=== PATIENT | female | born 1975 | race Caucasian/White ===

== ENCOUNTER 2023-08-27 18:13 | Emergency (ER) | payer OTHER ==
--- NOTE | 2023-08-27 18:16 | ERPHSYRPT ---
- History of Present Illness Time Seen by Provider: 08/27/23 18:16 Source: patient Exam Limitations: no limitations Physician History: This is a morbidly obese 47-year-old white female patient who presents with 3- day history of migraine headaches that is generalized and throbbing in location and type of pain. She rates her pain a 7 out of 10. Patient has her migraine headaches for the last 3 days despite using her maintenance migraine headache medication as well as preventative migraine medication. Patient denies any head trauma. Patient is refusing CT scan of the head since she had a relatively recent negative MRI of the brain at the end of June 2023. Patient has an appointment to see a neurologist on 08/29/2023. Patient states that at her most recent migraine headache episode, they did not provide her with any narcotic medication but did provide her with a nonnarcotic migraine cocktail. This was not effective for her. Patient was hoping to also have IV fluids. The patient's spouse provided additional, independent history as the patient did not remember all the details of her past medical history regarding migraine headache episodes and treatments. Timing/Duration: day(s) (3) Quality: aching, throbbing Head Pain Location: global Severity of Pain-Max: moderate Severity of Pain-Current: moderate Recent Head Trauma: occasional headaches Modifying Factors: Improves With: exposure to light, noise Associated Symptoms: sensitive to light Previous symptoms: same symptoms as today, no recent treatment Allergies/Adverse Reactions: morphine Allergy (Verified 08/27/23 18:25) Sulfa (Sulfonamide Antibiotics) Allergy (Verified 08/27/23 18:25) Travel Risk - International Travel Have you traveled outside of the country in past 3 weeks: No - Coronavirus Screening Are you exhibiting any of the following symptoms?: No Close contact with a COVID-19 positive Pt in past 14-21 Days: No - Review of Systems Constitutional: No Symptoms Eyes: No Symptoms Ears, Nose, & Throat: No Symptoms Respiratory: No Symptoms Cardiac: No Symptoms Abdominal/Gastrointestinal: No Symptoms Genitourinary Symptoms: No Symptoms Musculoskeletal: No Symptoms Skin: No Symptoms Neurological: Headache Psychological: No Symptoms Endocrine: No Symptoms Hematologic/Lymphatic: No Symptoms Immunological/Allergic: No Symptoms All Other Systems: Reviewed and Negative - Past Medical History Pertinent Past Medical History: Yes Neurological History: Migraines Cardiac History: No Pertinent History Respiratory History: No Pertinent History Endocrine Medical History: Hypothyroidism Musculoskeletal History: No Pertinent History - Nursing Vital Signs Nursing Vital Signs: Initial Vital Signs Temperature 97.3 F 08/27/23 18:26 Pulse Rate 60 08/27/23 18:26 Respiratory Rate 24 08/27/23 18:26 Blood Pressure 125/81 08/27/23 18:26 O2 Sat by Pulse Oximetry 99 08/27/23 18:26 Pain Scale Pain Intensity 0 - Physical Exam General Appearance: no apparent distress, alert, anxiety, obese Eye Exam: PERRL/EOMI, eyes nml inspection Ears, Nose, Throat Exam: normal ENT inspection, moist mucous membranes Neck Exam: normal inspection, non-tender, supple, full range of motion Respiratory Exam: normal breath sounds, lungs clear, airway intact, No chest tenderness, No respiratory distress Cardiovascular Exam: regular rate/rhythm, normal heart sounds, normal peripheral pulses Gastrointestinal/Abdominal Exam: No tenderness Back Exam: normal inspection, normal range of motion, No CVA tenderness, No vertebral tenderness Extremity Exam: normal inspection, normal range of motion, pelvis stable Mental Status Exam: alert, 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, 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 Exam: normal hearing, normal speech, PERRL, tongue midline Coordination/Gait Exam: normal finger to nose, normal gait, normal cerebellar function Motor/Sensory Exam: no motor deficit, no sensory deficit, no pronator drift Skin Exam: normal color, warm, dry Lymphatic Exam: No adenopathy SpO2 Interpretation: normal O2 Delivery: Room Air - Course Nursing assessment & vital signs reviewed: Yes Ordered Tests: Active Orders 24 hr Category Date Time Status IV Insertion STAT Care 08/27/23 18:36 Active Pulse Oximetry (ED) STAT Care 08/27/23 18:36 Active Medication Summary Generic Name Dose Route Start Last Admin Trade Name Freq PRN Reason Stop Dose Admin Sodium Chloride 500 mls @ 500 mls/hr 08/27/23 18:37 08/27/23 18:45 Sodium Chloride 0.9% 500 Ml IV 08/27/23 19:36 500 mls/hr .Q1H ONE Administration Discontinued Medications Generic Name Dose Route Start Last Admin Trade Name Freq PRN Reason Stop Dose Admin Diphenhydramine HCl 50 mg 08/27/23 18:36 08/27/23 18:47 Diphenhydramine Hcl 50 Mg/Ml Vial IV 08/27/23 18:37 50 mg STAT ONE Administration Diphenhydramine HCl Confirm 08/27/23 18:42 Diphenhydramine Hcl 50 Mg/Ml Vial Administered 08/27/23 18:43 Dose 50 mg .ROUTE .STK-MED ONE Hydromorphone HCl 1 mg 08/27/23 18:36 08/27/23 18:48 Hydromorphone 1 Mg/1ml Inj IV 08/27/23 18:37 1 mg STAT ONE Administration Hydromorphone HCl Confirm 08/27/23 18:42 Hydromorphone 1 Mg/1ml Inj Administered 08/27/23 18:43 Dose 1 mg .ROUTE .STK-MED ONE Sodium Chloride Confirm 08/27/23 18:42 Sodium Chloride 0.9% 500 Ml Administered 08/27/23 18:43 Dose 500 mls @ ud IV .STK-MED ONE Ketorolac Tromethamine 30 mg 08/27/23 18:36 08/27/23 18:47 Ketorolac Tromethamine 30 Mg/Ml Inj IV 08/27/23 18:37 30 mg STAT ONE Administration Ketorolac Tromethamine Confirm 08/27/23 18:42 Ketorolac Tromethamine 30 Mg/Ml Inj Administered 08/27/23 18:43 Dose 30 mg .ROUTE .STK-MED ONE Prochlorperazine Edisylate 5 mg 08/27/23 18:36 08/27/23 18:46 Prochlorperazine Edisylate 10 Mg/2 Ml Vial IV 08/27/23 18:37 5 mg STAT ONE Administration Prochlorperazine Edisylate Confirm 08/27/23 18:42 Prochlorperazine Edisylate 10 Mg/2 Ml Vial Administered 08/27/23 18:43 Dose 10 mg .ROUTE .STK-MED ONE - Progress Progress: improved, re-examined Air Movement: good Progress Note: 08/27/23 18:57 This patient's medical issue is 1 of low complexity. The level of complexity in the workup performed is based on review of the patient's past medical history, review the patient's medication list, review of patient drug allergy list, history of present illness and physical findings on examination. The workup in this patient includes placement of intravenous line, infusion normal saline solution, providing the patient with intravenous Compazine, intravenous Toradol, intravenous Dilaudid, and intravenous Benadryl. 08/27/23 19:25 Symptoms improved Blood Culture(s) Obtained: No Antibiotics given: No Counseled pt/family regarding: diagnosis, need for follow-up Medical Desision Making - Independent Historian Additional History obtained from: Spouse - Diagnostic Testing Diagnostic test were ordered, analyzed, and reviewed by me: No - Risk of complications Minimal Risk: Minimal risk of morbidity - Departure Departure Disposition: Home Clinical Impression: Migraine headache Condition: Stable Critical Care Time: No Referrals: DUARTE DÍAZ NP [NON-STAFF PHY W/O PRIVILEGES] - Follow up/PCP as directed Additional Instructions: Drink plenty of fluids. Take your medication as prescribed. Keep your appointment with your neurologist on 08/29/2023.
[2023-08-27 18:41] VITALS: TEMP 97.3
[2023-08-27] MEDS ORDERED: Hydromorphone 1 mg/ml Injection ONE (18:42)
[2023-08-27] MEDS ORDERED: Compazine 10 MG/2 ML ONE (18:42)
[2023-08-27] MEDS ORDERED: Sodium Chloride 0.9% 500 ML 500 ML IV ONE (18:42)
[2023-08-27] MEDS ORDERED: BENADRYL 50 MG/ML ONE (18:42)
[2023-08-27] MEDS ORDERED: TORAdol 30 mg Injection ONE (18:42)
[2023-08-27] MEDS: Sodium Chloride 0.9% 500 ML 500 ML IV ONE (18:45)
[2023-08-27] MEDS: Compazine 10 MG/2 ML IV ONE (18:46)
[2023-08-27] MEDS: BENADRYL 50 MG/ML IV ONE (18:47)
[2023-08-27] MEDS: TORAdol 30 mg Injection IV ONE (18:47)
[2023-08-27] MEDS: Hydromorphone 1 mg/ml Injection IV ONE (18:48)
[2023-08-27 19:22] VITALS: PULSE 49; RESP 13; O2SAT 94
[2023-08-27 19:47] VITALS: BP 99/58
== END 2023-08-27 19:50 | disposition home or self-care (01) ==
LOC: ED 18:13
DX: G43.909 Migraine, unspecified, not intractable, without status migrainosus (principal)
CPT/HCPCS: 36000; 94760; 96374; 96375; 99284; J1170; J1200; J1885

== ENCOUNTER 2023-11-14 17:18 | Emergency (ER) | payer OTHER ==
--- NOTE | 2023-11-14 17:22 | ERPHSYRPT ---
- History of Present Illness Time Seen by Provider: 11/14/23 17:22 Source: patient, family Exam Limitations: no limitations Physician History: This is an obese 48-year-old white female patient of Dr. Thomas who has a history of migraine headaches and hypothyroidism and presents with persistent migraines x 4 days despite using her Nurtec ODT and Imitrex medication. It is a typical migraine for her. She does not want any radiographic studies as she had a normal CT scan within the last few months. She did not have any injury to her head. Patient states that the regimen that was given to her in August 2023 worked very well for her. Patient denies chest pain. Patient denies shortness of breath. Patient has no abdominal pain. She does have sound/noise and light sensitivity Timing/Duration: day(s) (4), worse Head Pain Location: global Severity of Pain-Max: moderate Severity of Pain-Current: moderate Recent Head Trauma: no recent headache/trauma, chronic headaches Modifying Factors: Improves With: exposure to light, noise Associated Symptoms: nausea/vomiting (No vomiting but nauseated), sensitive to light, No facial pain, No loss of consciousness, No neck pain, No seizures, No stiff neck, No vision changes, No visual disturbance Previous symptoms: same symptoms as today, no recent treatment Allergies/Adverse Reactions: morphine Allergy (Verified 08/27/23 18:25) Sulfa (Sulfonamide Antibiotics) Allergy (Verified 08/27/23 18:25) Home Medications: Atogepant [Qulipta] 1 tab PO DAILY 11/14/23 [History] Cyclobenzaprine HCl 10 mg [Cyclobenzaprine 10 MG] 10 mg PO DAILY 11/14/23 [History] Ferrous Sulfate [Ferosul] 325 mg PO DAILY 11/14/23 [History] Rimegepant Sulfate [Nurtec Odt] 75 mg PO DAILY PRN 11/14/23 [History] Sumatriptan Succinate 6 mg [Imitrex 6 MG/0.5 ML] 6 mg SQ DAILY PRN 11/14/23 [History] Hx Tetanus, Diphtheria Vaccination/Date Given: Yes Hx Influenza Vaccination/Date Given: No Hx Pneumococcal Vaccination/Date Given: No Travel Risk - International Travel Have you traveled outside of the country in past 3 weeks: No - Emerging Infectious Disease Are you exhibiting symptoms associated with any current EIDs: No - Review of Systems Constitutional: No Symptoms Eyes: No Symptoms Ears, Nose, & Throat: No Symptoms Respiratory: No Symptoms Cardiac: No Symptoms Abdominal/Gastrointestinal: No Symptoms Genitourinary Symptoms: No Symptoms Musculoskeletal: No Symptoms Skin: No Symptoms Neurological: Headache Psychological: No Symptoms Endocrine: No Symptoms Hematologic/Lymphatic: No Symptoms Immunological/Allergic: No Symptoms All Other Systems: Reviewed and Negative - Past Medical History Pertinent Past Medical History: Yes Neurological History: Migraines Cardiac History: No Pertinent History Respiratory History: No Pertinent History Endocrine Medical History: Hypothyroidism Musculoskeletal History: No Pertinent History GI Medical History: Gallbladder Disease - Past Surgical History Past Surgical History: Yes Gastrointestinal: Cholecystectomy Female Surgical History: Hysterectomy Other Surgical History: KNEE ARTHROSCOPY, SHOULDER SURGERY, ORIF OF TOE - Social History Smoking Status: Never smoker Exposure to second hand smoke: No Drug Use: none Patient Lives Alone: No - Nursing Vital Signs Nursing Vital Signs: Initial Vital Signs Temperature 97.0 F 11/14/23 17:24 Pulse Rate 92 H 11/14/23 17:24 Respiratory Rate 20 11/14/23 17:24 Blood Pressure 150/90 11/14/23 17:24 O2 Sat by Pulse Oximetry 94 L 11/14/23 17:24 Pain Scale Pain Intensity 7 - Physical Exam General Appearance: mild distress, alert, obese Eye Exam: PERRL/EOMI, eyes nml inspection Ears, Nose, Throat Exam: normal ENT inspection, moist mucous membranes Neck Exam: normal inspection, non-tender, supple, full range of motion Respiratory Exam: airway intact, No chest tenderness, No respiratory distress Cardiovascular Exam: regular rate/rhythm, normal peripheral pulses Gastrointestinal/Abdominal Exam: No tenderness Back Exam: normal inspection, normal range of motion, No CVA tenderness, No vertebral tenderness Extremity Exam: normal inspection, normal range of motion, pelvis stable Mental Status Exam: 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, 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, 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: normal hearing, normal speech, PERRL, tongue midline Coordination/Gait Exam: normal gait, normal cerebellar function Motor/Sensory Exam: no motor deficit, no sensory deficit Skin Exam: normal color, warm, dry Lymphatic Exam: No adenopathy SpO2 Interpretation: normal O2 Delivery: Room Air - Course Nursing assessment & vital signs reviewed: Yes Ordered Tests: Medication Summary Generic Name Dose Route Start Last Admin Trade Name Freq PRN Reason Stop Dose Admin Diphenhydramine HCl 50 mg 11/14/23 18:23 Diphenhydramine Hcl 50 Mg/Ml Vial IM 11/14/23 18:24 STAT ONE - Progress Progress: improved, re-examined Air Movement: good Progress Note: 11/14/23 18:28 My medical decision making and the assignment of low complexity to this patient's medical issue is based on review of the patient's past medical history, review of the patient's medication list, review of patient drug allergy list, history present illness and physical findings on examination. The workup in this patient today does not require laboratory radiographic studies. The patient and I are both comfortable that this is her typical migraine headache that is not responding to the outpatient medication that she is taking. She responded nicely to the regimen of Benadryl, Dilaudid, Toradol, and Compazine. They are all be given intramuscularly. Patient does not want a CT scan of the head. I am not convinced she actually needs to have that study performed. Also, she does not have a true allergy to morphine but it does drop her systolic blood pressure and she wants to avoid that. Dilaudid works for her without the same side effect. Blood Culture(s) Obtained: No Antibiotics given: No Counseled pt/family regarding: diagnosis, need for follow-up Medical Desision Making - Independent Historian Additional History obtained from: Spouse - Diagnostic Testing Diagnostic test were ordered, analyzed, and reviewed by me: No - Risk of complications Minimal Risk: Minimal risk of morbidity - Departure Departure Disposition: Home Clinical Impression: Migraine headache Condition: Stable Critical Care Time: No Referrals: ESTEFANÍA THOMAS MD [Primary Care Provider] - Follow up/PCP as directed Additional Instructions: Drink plenty of fluids. Take your medications as prescribed. Call your neurologist and your primary care provider tomorrow, 11/15/2023, to see if they want to move your January 2024 appointment to an earlier 1.
[2023-11-14 17:28] VITALS: RESP 20; TEMP 97
[2023-11-14] MEDS ORDERED: BENADRYL 50 MG/ML ONE (18:31)
[2023-11-14] MEDS ORDERED: TORAdol 30 mg Injection ONE ×2 (18:31→18:42)
[2023-11-14] MEDS ORDERED: Compazine 10 MG/2 ML ONE (18:32)
[2023-11-14] MEDS ORDERED: Hydromorphone 1 mg/ml Injection ONE (18:32)
[2023-11-14] MEDS: BENADRYL 50 MG/ML IM ONE (18:39)
[2023-11-14] MEDS: Hydromorphone 1 mg/ml Injection IM ONE (18:39)
[2023-11-14] MEDS: Compazine 10 MG/2 ML IM ONE (18:39)
[2023-11-14] MEDS: TORAdol 30 mg Injection IM ONE (18:40)
[2023-11-14 19:14] VITALS: BP 119/92; PULSE 73; O2SAT 92
== END 2023-11-14 19:22 | disposition home or self-care (01) ==
LOC: ED 17:18
DX: G43.909 Migraine, unspecified, not intractable, without status migrainosus (principal); Z79.899 Other long term (current) drug therapy
CPT/HCPCS: 96372; 99283; J1170; J1200; J1885

== ENCOUNTER 2024-02-09 10:26 | Day surgery (SDC) | payer OTHER ==
[2024-02-09] MEDS ORDERED: Xylocaine-Mpf 2% 5 Ml Vial IJ ONE (10:27)
[2024-02-09] MEDS ORDERED: Lactated Ringers 1,000 ML IV ONE (11:39)
[2024-02-09] MEDS ORDERED: DIPRIVAN 200 MG/20 ML IV ONE (12:11)
--- NOTE | 2024-02-09 13:51 | XRAY ---
Indication: Left C2-C4 MBB. Intraoperative fluoroscopy provided for 11 seconds. 3 digital spot image submitted for interpretation demonstrates posterior needle tips projecting over the expected left C2-C4 nerve roots. Correlate with intraoperative findings/report.
--- NOTE | 2024-02-09 13:55 | XRAY ---
11 seconds of fluoroscopy was used in surgery for a left C2-C4 MBB.
== END 2024-02-09 12:37 | disposition home or self-care (01) ==
LOC: SDC-PAIN 10:26
PROVIDERS: ATTEND Psychiatry & Neurology Pain Medicine
DX: M47.812 Spondylosis without myelopathy or radiculopathy, cervical region (principal)
CPT/HCPCS: 64490; 64491; 72040; 77002; J2704

== ENCOUNTER 2024-03-07 09:09 | Day surgery (SDC) | payer OTHER ==
[2024-03-07] MEDS ORDERED: BUPIVACAINE 0.5% VIAL IJ ONE (09:10)
[2024-03-07] MEDS ORDERED: DIPRIVAN 200 MG/20 ML IV ONE (10:59)
[2024-03-07] MEDS ORDERED: Lactated Ringers 1,000 ML IV ONE (12:10)
--- NOTE | 2024-03-07 13:07 | XRAY ---
Indication: Left C2-C4 MBB. Intraoperative fluoroscopy provided for 15 seconds. 2 digital spot images submitted for interpretation demonstrates posterior needle tips projecting over the expected left C2-C4 nerve roots. Correlate with intraoperative findings/report.
--- NOTE | 2024-03-07 15:00 | XRAY ---
15 seconds of fluoroscopy was used in surgery for left C2-C4 MBB.
== END 2024-03-07 11:24 | disposition home or self-care (01) ==
LOC: SDC-PAIN 09:09
PROVIDERS: ATTEND Psychiatry & Neurology Pain Medicine
DX: M47.812 Spondylosis without myelopathy or radiculopathy, cervical region (principal); R73.03 Prediabetes
CPT/HCPCS: 64490; 64491; 72040; 77002; 82947; J2704

== ENCOUNTER 2024-04-24 17:29 | Emergency (ER) | payer OTHER ==
[2024-04-24 17:55] VITALS: RESP 18; TEMP 96.2
--- NOTE | 2024-04-24 18:23 | ERPHSYRPT ---
- History of Present Illness Time Seen by Provider: 04/24/24 18:21 Source: patient Exam Limitations: no limitations Patient Subjective Stated Complaint: Migraine Triage Nursing Assessment: Patient ambulated back to ED and transferred self to bed. Patient A+O X 3. Patient's skin pink, warm and dry. Patient complains of migraine 7/10 for past 6 days. Patient complains of intermittent nausea and dizzness. Patient has taken all of her migraine meds with no relief. Physician History: 48-year-old female with a history of migraine presents to our ED with a 6-day history of a migraine. Patient states that she has had a CAT scan recently for the same. Patient does not think she needs another CAT scan she is requesting the migraine cocktail as it has helped her overcome her migraine headache. No trauma no fever no neck pain mild photophobia. Slight nausea. No meningeal signs. No numbness tingling or weakness. No associated chest pain or shortness of breath symptoms are mild to moderate in intensity. Patient otherwise feels well. She voices no other complaints or concerns at this time. Portions of this note were created with voice recognition technology. There may be grammatical, spelling, punctuation or sound alike errors Timing/Duration: day(s) Severity: moderate Modifying Factors: Improves With: nothing Associated Symptoms: denies symptoms Allergies/Adverse Reactions: morphine Allergy (Verified 04/24/24 17:44) Sulfa (Sulfonamide Antibiotics) Allergy (Verified 04/24/24 17:44) Home Medications: Atogepant [Qulipta] 1 tab PO DAILY 11/14/23 [History] Cyclobenzaprine HCl 10 mg [Cyclobenzaprine 10 MG] 10 mg PO DAILY 11/14/23 [History] Rimegepant Sulfate [Nurtec Odt] 75 mg PO DAILY PRN 11/14/23 [History] Sumatriptan Succinate 6 mg [Imitrex 6 MG/0.5 ML] 6 mg SQ DAILY PRN 11/14/23 [History] Propranolol HCl 1 tab PO BID 04/24/24 [History] SUMAtriptan succinate [Imitrex 50 mg] 100 mg PO BID PRN PRN 04/24/24 [History] Hx Tetanus, Diphtheria Vaccination/Date Given: Yes Hx Influenza Vaccination/Date Given: No Hx Pneumococcal Vaccination/Date Given: No Immunizations Up to Date: Yes Travel Risk - International Travel Have you traveled outside of the country in past 3 weeks: No - Emerging Infectious Disease Are you exhibiting symptoms associated with any current EIDs: No - Review of Systems Constitutional: No Symptoms, No Fever, No Chills Eyes: No Symptoms Ears, Nose, & Throat: No Symptoms Respiratory: No Symptoms, No Cough, No Dyspnea Cardiac: No Symptoms, No Chest Pain, No Edema, No Syncope Abdominal/Gastrointestinal: No Symptoms, No Abdominal Pain, No Nausea, No Vomiting, No Diarrhea Genitourinary Symptoms: No Symptoms, No Dysuria Musculoskeletal: No Symptoms, No Back Pain, No Neck Pain Skin: No Symptoms, No Rash Neurological: No Symptoms, No Dizziness, No Focal Weakness, No Sensory Changes Psychological: No Symptoms Endocrine: No Symptoms Hematologic/Lymphatic: No Symptoms Immunological/Allergic: No Symptoms All Other Systems: Reviewed and Negative - Past Medical History Pertinent Past Medical History: Yes Neurological History: Migraines Cardiac History: No Pertinent History Respiratory History: No Pertinent History Endocrine Medical History: Hypothyroidism Musculoskeletal History: Osteoarthritis GI Medical History: Gallbladder Disease Other Medical History: PMH: PSH: R SHOULDER SCOPE, R KNEE SCOPE X 2, TOTAL HYSTERECTOMY, CHOLECYSTECTOMY, TONSILLECTOMY, D&C. ALLERGIES: SULFA, MORPHINE - Past Surgical History Past Surgical History: Yes Gastrointestinal: Cholecystectomy Female Surgical History: Hysterectomy Other Surgical History: KNEE ARTHROSCOPY, SHOULDER SURGERY, ORIF OF TOE - Female History Hx Last Menstrual Period: hysterectomy Hx Now: No - Social History Smoking Status: Never smoker Exposure to second hand smoke: No Drug Use: none Patient Lives Alone: No - Social Determinants of Health Will the patient participate in the screening: Declined to provide - Nursing Vital Signs Nursing Vital Signs: Initial Vital Signs Temperature 96.2 F 04/24/24 17:49 Pulse Rate 69 04/24/24 17:49 Respiratory Rate 18 04/24/24 17:49 Blood Pressure 119/82 04/24/24 17:49 O2 Sat by Pulse Oximetry 96 04/24/24 17:49 Pain Scale Pain Intensity 4 - Physical Exam General Appearance: no apparent distress, alert Eye Exam: PERRL/EOMI, eyes nml inspection Ears, Nose, Throat Exam: normal ENT inspection, pharynx normal, moist mucous membranes Neck Exam: normal inspection, non-tender, supple, full range of motion Respiratory Exam: normal breath sounds, lungs clear, No respiratory distress Cardiovascular Exam: regular rate/rhythm, normal heart sounds, normal peripheral pulses Gastrointestinal/Abdomen Exam: soft, normal bowel sounds, No tenderness, No mass Back Exam: normal inspection, normal range of motion, No CVA tenderness, No vertebral tenderness Extremity Exam: normal inspection, normal range of motion, pelvis stable Neurologic Exam: alert, 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, cooperative, normal mood/affect, nml cerebellar function, nml station & gait, sensation nml, No motor deficits Skin Exam: normal color, warm, dry, No rash Lymphatic Exam: No adenopathy SpO2 Interpretation: normal SpO2: 96 O2 Delivery: Room Air - Course Nursing assessment & vital signs reviewed: Yes Ordered Tests: Active Orders 24 hr Category Date Time Status IV Insertion STAT Care 04/24/24 18:18 Active Pulse Oximetry (ED) STAT Care 04/24/24 18:18 Active Medication Summary Discontinued Medications Generic Name Dose Route Start Last Admin Trade Name Freq PRN Reason Stop Dose Admin Diphenhydramine HCl 25 mg 04/24/24 18:21 04/24/24 18:56 Diphenhydramine Hcl 50 Mg/Ml Vial IV 04/24/24 18:22 25 mg STAT ONE Administration Diphenhydramine HCl Confirm 04/24/24 18:42 Diphenhydramine Hcl 50 Mg/Ml Vial Administered 04/24/24 18:43 Dose 50 mg .ROUTE .STK-MED ONE Sodium Chloride 1,000 mls @ 999 mls/hr 04/24/24 18:18 04/24/24 18:50 Sodium Chloride 0.9% 1000 Ml IV 04/24/24 19:18 999 mls/hr .Q1H1M STA Administration Sodium Chloride Confirm 04/24/24 18:42 Sodium Chloride 0.9% 1000 Ml Administered 04/24/24 18:43 Dose 1,000 mls @ ud .ROUTE .STK-MED ONE Ketorolac Tromethamine 30 mg 04/24/24 18:21 04/24/24 19:02 Ketorolac Tromethamine 30 Mg/Ml Inj IV 04/24/24 18:22 30 mg STAT ONE Administration Ketorolac Tromethamine Confirm 04/24/24 18:42 Ketorolac Tromethamine 30 Mg/Ml Inj Administered 04/24/24 18:43 Dose 30 mg .ROUTE .STK-MED ONE Prochlorperazine Edisylate 10 mg 04/24/24 18:20 04/24/24 18:53 Prochlorperazine Edisylate 10 Mg/2 Ml Vial IV 04/24/24 18:21 10 mg STAT ONE Administration Prochlorperazine Edisylate Confirm 04/24/24 18:42 Prochlorperazine Edisylate 10 Mg/2 Ml Vial Administered 04/24/24 18:43 Dose 10 mg .ROUTE .STK-MED ONE - Progress Progress: improved Progress Note: 48-year-old female history of migraine headache presents to our ED for evaluation of a 6-day history of a migraine. Migraine is typical of her usual migraine. Neurologic exam normal. Patient received a liter of IV fluids, Compazine Toradol and Benadryl. Patient reassessed headache resolved patient requesting discharge. No indication for further workup will discharge home. Patient agrees to follow-up with primary care doctor within 48 hours for reevaluation. She voices no other complaints or concerns at this time. Repeat neuroexam within normal limits. Portions of this note were created with voice recognition technology. There may be grammatical, spelling, punctuation or sound alike errors Complexity of problem addressed is moderate acute complicated. No critical care time. Complex of data reviewed and analyzed is none. Diagnosis made based on history and physical exam. No specialized testing ordered. Risk of complication and or risk morbidity/mortality of patient management is low. Vital stable. Time spent to discharge patient is approximately 15 minutes. Plan of care established for shared decision making. No social determinants of health present to impede follow-up. Portions of this note were created with voice recognition technology. There may be grammatical, spelling, punctuation or sound alike errors 04/24/24 19:30 Counseled pt/family regarding: diagnosis, need for follow-up - Departure Departure Disposition: Home Clinical Impression: Migraine Condition: Stable Critical Care Time: No Referrals: ESTEFANÍA THOMAS MD [Primary Care Provider] - Follow up/PCP as directed Additional Instructions: Discharge/Care Plan WESTON FRANCO was seen on 04/24/24 in the Emergency Room. The patient was counseled regarding Diagnosis,Lab results, Imaging studies, need for follow up and when to return to the Emergency Room. Prescriptions given: Discharge Note I have spoken with the patient and/or caregivers. I have explained the patient's condition, diagnosis and treatment plan based on the information available to me at this time. I have answered the patient's and/or caregiver's questions and addressed any concerns. The patient and/or caregivers have as good understanding of the patient's diagnosis, condition and treatment plan as can be expected at this point. The vital signs have been stable. The patient's condition is stable and appropriate for discharge from the emergency department. The patient will pursue further outpatient evaluation with the primary care physician or other designated or consulting physician as outlined in the discharge instructions. The patient and/or caregivers are agreeable to this plan of care and follow-up instructions have been explained in detail. The patient and/or caregivers have received these instruction. The patient/and or caregivers are aware that any significant change in condition or worsening of symptoms should prompt an immediate return to this or the closest emergency department or call 911.
[2024-04-24] MEDS ORDERED: Compazine 10 MG/2 ML ONE (18:42)
[2024-04-24] MEDS ORDERED: Sodium Chloride 0.9% 1000 ML 1,000 ML ONE (18:42)
[2024-04-24] MEDS ORDERED: TORAdol 30 mg Injection ONE (18:42)
[2024-04-24] MEDS ORDERED: BENADRYL 50 MG/ML ONE (18:42)
[2024-04-24] MEDS: Sodium Chloride 0.9% 1000 ML 1,000 ML IV STA (18:50)
[2024-04-24] MEDS: Compazine 10 MG/2 ML IV ONE (18:53)
[2024-04-24] MEDS: BENADRYL 50 MG/ML IV ONE (18:56)
[2024-04-24] MEDS: TORAdol 30 mg Injection IV ONE (19:02)
[2024-04-24 19:54] VITALS: BP 133/80; PULSE 68; O2SAT 94
== END 2024-04-24 19:56 | disposition home or self-care (01) ==
LOC: ED 17:29
DX: G43.909 Migraine, unspecified, not intractable, without status migrainosus (principal); Z79.899 Other long term (current) drug therapy
CPT/HCPCS: 36000; 94760; 96374; 96375; 99284; J1200; J1885

== ENCOUNTER 2024-05-02 08:33 | Emergency (ER) | payer OTHER ==
--- NOTE | 2024-05-02 08:37 | ERPHSYRPT ---
- History of Present Illness Time Seen by Provider: 05/02/24 08:36 Source: patient Exam Limitations: no limitations Physician History: This is an obese 48-year-old white female patient who arrives by private vehicle escorted by family member and is a patient of Dr. Thomas. Patient has a history of migraine headaches and despite using her Imitrex, propranolol, Nurtec, Qulipta, her global headache throbbing which measures 8 out of 10 is still present. She used 1000 mg of Tylenol at 5 AM without relief. Patient has a history of hypothyroidism and osteoarthritis. She states is not the worst headache she has ever had. Patient states that she is allergic to morphine and sulfa but has used Tylenol without adverse effects Timing/Duration: yesterday Quality: aching, throbbing Head Pain Location: global Severity of Pain-Max: moderate Severity of Pain-Current: moderate Recent Head Trauma: no recent headache/trauma Modifying Factors: Improves With: exposure to light, noise Associated Symptoms: nausea/vomiting, sensitive to light (Nausea but no vomiting), No speech problems, No stiff neck, No vision changes Previous symptoms: same symptoms as today, no recent treatment Allergies/Adverse Reactions: morphine Allergy (Verified 05/02/24 08:46) Sulfa (Sulfonamide Antibiotics) Allergy (Verified 05/02/24 08:46) Home Medications: Atogepant [Qulipta] 1 tab PO DAILY 11/14/23 [History] Cyclobenzaprine HCl 10 mg [Cyclobenzaprine 10 MG] 10 mg PO DAILY 11/14/23 [History] Rimegepant Sulfate [Nurtec Odt] 75 mg PO DAILY PRN 11/14/23 [History] Sumatriptan Succinate 6 mg [Imitrex 6 MG/0.5 ML] 6 mg SQ DAILY PRN 11/14/23 [History] Propranolol HCl 1 tab PO BID 04/24/24 [History] SUMAtriptan succinate [Imitrex 50 mg] 100 mg PO BID PRN PRN 04/24/24 [History] Hx Tetanus, Diphtheria Vaccination/Date Given: Yes Hx Influenza Vaccination/Date Given: No Hx Pneumococcal Vaccination/Date Given: No Travel Risk - International Travel Have you traveled outside of the country in past 3 weeks: No - Emerging Infectious Disease Are you exhibiting symptoms associated with any current EIDs: No - Review of Systems Constitutional: No Symptoms Eyes: No Symptoms Ears, Nose, & Throat: No Symptoms Respiratory: No Symptoms Cardiac: No Symptoms Abdominal/Gastrointestinal: No Symptoms Genitourinary Symptoms: No Symptoms Musculoskeletal: No Symptoms Skin: No Symptoms Neurological: Headache Psychological: No Symptoms Endocrine: No Symptoms Hematologic/Lymphatic: No Symptoms Immunological/Allergic: No Symptoms All Other Systems: Reviewed and Negative - Past Medical History Pertinent Past Medical History: Yes Neurological History: Migraines Cardiac History: No Pertinent History Respiratory History: No Pertinent History Endocrine Medical History: Hypothyroidism Musculoskeletal History: Osteoarthritis GI Medical History: Gallbladder Disease Other Medical History: PMH: PSH: R SHOULDER SCOPE, R KNEE SCOPE X 2, TOTAL HYSTERECTOMY, CHOLECYSTECTOMY, TONSILLECTOMY, D&C. ALLERGIES: SULFA, MORPHINE - Past Surgical History Past Surgical History: Yes Gastrointestinal: Cholecystectomy Female Surgical History: Hysterectomy Other Surgical History: KNEE ARTHROSCOPY, SHOULDER SURGERY, ORIF OF TOE - Female History Hx Last Menstrual Period: hysterectomy - Social History Smoking Status: Never smoker Exposure to second hand smoke: No Drug Use: none Patient Lives Alone: No - Social Determinants of Health Will the patient participate in the screening: Declined to provide - Nursing Vital Signs Nursing Vital Signs: Initial Vital Signs Temperature 97.0 F 05/02/24 08:39 Pulse Rate 72 05/02/24 08:39 Blood Pressure 133/75 05/02/24 08:39 O2 Sat by Pulse Oximetry 97 05/02/24 08:39 Pain Scale Pain Intensity 8 - Physical Exam General Appearance: mild distress, alert, obese Eye Exam: PERRL/EOMI, eyes nml inspection Ears, Nose, Throat Exam: normal ENT inspection, moist mucous membranes Neck Exam: normal inspection, non-tender, supple, full range of motion Respiratory Exam: airway intact, No chest tenderness, No respiratory distress Gastrointestinal/Abdominal Exam: No tenderness Back Exam: normal inspection, normal range of motion, No CVA tenderness, No vertebral tenderness Extremity Exam: normal inspection, normal range of motion, pelvis stable Mental Status Exam: alert, 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, 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: normal hearing, normal speech, PERRL, tongue midline Coordination/Gait Exam: normal gait, normal cerebellar function Skin Exam: normal color, warm, dry Lymphatic Exam: No adenopathy SpO2 Interpretation: normal O2 Delivery: Room Air - Course Nursing assessment & vital signs reviewed: Yes Ordered Tests: Medication Summary Discontinued Medications Generic Name Dose Route Start Last Admin Trade Name Fabiola PRN Reason Stop Dose Admin Methylprednisolone Sodium 0 mg 05/02/24 09:44 05/02/24 10:22 Succinate 125 mg/ Sterile IM 05/02/24 09:45 125 mg Water 2 ml STAT ONE Administration Diphenhydramine HCl 50 mg 05/02/24 09:44 05/02/24 10:22 Diphenhydramine Hcl 50 Mg/Ml Vial IM 05/02/24 09:45 50 mg STAT ONE Administration Diphenhydramine HCl Confirm 05/02/24 10:12 Diphenhydramine Hcl 50 Mg/Ml Vial Administered 05/02/24 10:13 Dose 50 mg .ROUTE .STK-MED ONE Hydromorphone HCl 0.5 mg 05/02/24 09:44 05/02/24 10:19 Hydromorphone 1 Mg/1ml Inj IM 05/02/24 09:45 0.5 mg STAT ONE Administration Hydromorphone HCl Confirm 05/02/24 10:12 Hydromorphone 1 Mg/1ml Inj Administered 05/02/24 10:13 Dose 1 mg .ROUTE .STK-MED ONE Methylprednisolone Sodium Succinate Confirm 05/02/24 10:12 Methylprednis Sod Succ 125 Mg/2 Ml Vial Administered 05/02/24 10:13 Dose 125 mg .ROUTE .STK-MED ONE Prochlorperazine Edisylate 5 mg 05/02/24 09:44 05/02/24 10:16 Prochlorperazine Edisylate 10 Mg/2 Ml Vial IM 05/02/24 09:45 5 mg STAT ONE Administration Prochlorperazine Edisylate Confirm 05/02/24 10:12 Prochlorperazine Edisylate 10 Mg/2 Ml Vial Administered 05/02/24 10:13 Dose 10 mg .ROUTE .STK-MED ONE Sterile Water Confirm 05/02/24 10:12 Water For Injection,Sterile 10 Ml Vial Administered 05/02/24 10:13 Dose 10 ml IJ .STK-MED ONE - Progress Progress: improved, re-examined Air Movement: good Progress Note: 05/02/24 11:02 My medical decision making and the assignment of low complexity to this ulises gurrola's medical issue today is based on review of the patient's past medical history, review of the patient's medication list, reviewed patient drug allergy list, history present illness and physical findings on examination. The workup in this patient does not necessitate radiographic or laboratory studies. Differential diagnosis includes but is not limited to migraine headache, viral illness 05/02/24 11:04 Patient reexamined after receiving her medication. She states she is significantly better and feels comfortable and wants to be discharged to home. Blood Culture(s) Obtained: No Antibiotics given: No Counseled pt/family regarding: diagnosis, need for follow-up Medical Desision Making - Independent Historian Additional History obtained from: Family - Diagnostic Testing Diagnostic test were ordered, analyzed, and reviewed by me: No - Risk of complications Low Risk: Low risk of morbidity from additional dx testing or treatment - Departure Departure Disposition: Home Clinical Impression: Migraine headache Condition: Stable Critical Care Time: No Referrals: ESTEFANÍA THOMAS MD [Primary Care Provider] - Follow up/PCP as directed Additional Instructions: Drink plenty of fluids. Take your medications as prescribed. Call your prescribing provider today, 05/02/2024, to make arrangements for follow-up appointment for further evaluation and management.
[2024-05-02 08:46] VITALS: TEMP 97
[2024-05-02] MEDS ORDERED: Hydromorphone 1 mg/ml Injection ONE (10:12)
[2024-05-02] MEDS ORDERED: Sterile H2O 10 ml IJ ONE (10:12)
[2024-05-02] MEDS ORDERED: BENADRYL 50 MG/ML ONE (10:12)
[2024-05-02] MEDS ORDERED: solu-MEDROL ONE (10:12)
[2024-05-02] MEDS ORDERED: Compazine 10 MG/2 ML ONE (10:12)
[2024-05-02] MEDS: Compazine 10 MG/2 ML IM ONE (10:16)
[2024-05-02] MEDS: Hydromorphone 1 mg/ml Injection IM ONE (10:19)
[2024-05-02] MEDS: solu-MEDROL 125 MG, Sterile H2O 10 ml 2 ML IM ONE (10:22)
[2024-05-02] MEDS: BENADRYL 50 MG/ML IM ONE (10:22)
[2024-05-02 11:32] VITALS: BP 97/66; PULSE 60; RESP 16; O2SAT 98
== END 2024-05-02 11:36 | disposition home or self-care (01) ==
LOC: ED 08:33
DX: Z79.899 Other long term (current) drug therapy (principal)
CPT/HCPCS: 96372; 99283; J1171; J1200; J2919

== ENCOUNTER 2024-05-03 11:18 | Day surgery (SDC) | payer OTHER ==
[2024-05-03] MEDS ORDERED: Xylocaine-Mpf 2% 5 Ml Vial IJ ONE (11:19)
[2024-05-03] MEDS ORDERED: DIPRIVAN 200 MG/20 ML IV ONE (12:48)
--- NOTE | 2024-05-03 14:19 | XRAY ---
Indication: Right C2-C4 MBB. Intraoperative fluoroscopy provided for 13 seconds. 2 digital spot image submitted for interpretation demonstrates posterior needle tips projecting over expected right C2-C4 nerve roots. Correlate with intraoperative findings/report.
--- NOTE | 2024-05-03 15:31 | XRAY ---
13 seconds of fluoroscopy was used in surgery for a right C2-C4 MBB.
== END 2024-05-03 12:50 | disposition home or self-care (01) ==
LOC: SDC-PAIN 11:18
PROVIDERS: ATTEND Psychiatry & Neurology Pain Medicine
DX: M47.812 Spondylosis without myelopathy or radiculopathy, cervical region (principal); M79.18 Myalgia, other site; R73.03 Prediabetes
CPT/HCPCS: 64490; 64491; 72040; 77002; 82947; J2704

== ENCOUNTER 2024-06-06 12:02 | Day surgery (SDC) | payer OTHER ==
[2024-06-06] MEDS ORDERED: D50W 50 ml Abboject IV ONE (12:03)
[2024-06-06] MEDS ORDERED: BUPIVACAINE 0.5% VIAL IJ ONE (12:03)
[2024-06-06] MEDS ORDERED: Zofran 4 MG/2 ML VIAL ONE (13:46)
[2024-06-06] MEDS ORDERED: BENADRYL 50 MG/ML ONE (13:46)
[2024-06-06] MEDS ORDERED: DIPRIVAN 200 MG/20 ML IV ONE (13:50)
--- NOTE | 2024-06-06 18:48 | XRAY ---
Indication: Right C2-C4 MBB. Intraoperative fluoroscopy provided for 18 seconds. 2 digital spot image submitted for interpretation demonstrates posterior needle tips projecting over the expected right C2-C4 nerve roots. Correlate with intraoperative findings/report.
--- NOTE | 2024-06-06 19:23 | XRAY ---
18 seconds of fluoroscopy was used in surgery for a right C2-C4 MBB.
== END 2024-06-06 14:26 | disposition home or self-care (01) ==
LOC: SDC-PAIN 12:02
PROVIDERS: ATTEND Psychiatry & Neurology Pain Medicine
DX: M47.812 Spondylosis without myelopathy or radiculopathy, cervical region (principal); R73.03 Prediabetes
CPT/HCPCS: 64490; 64491; 72040; 77002; 82947; J1200; J2405; J2704

== ENCOUNTER 2024-08-16 07:01 | Day surgery (SDC) | payer OTHER ==
[2024-08-16] MEDS ORDERED: BUPIVACAINE 0.5% VIAL IJ ONE (07:02)
[2024-08-16] MEDS ORDERED: dexAMETHasone sodium phosphate IJ ONE (07:02)
[2024-08-16] MEDS ORDERED: LIDOCAINE HCL 1% AMPUL 5 ML IJ ONE (07:02)
[2024-08-16] MEDS ORDERED: Lactated Ringers 500 ML IV ONE (07:24)
[2024-08-16] MEDS ORDERED: propofoL IV ONE ×2 (07:59→08:10)
--- NOTE | 2024-08-16 10:40 | XRAY ---
Indication: Left C2-C4 RFA. Intraoperative fluoroscopy provided for 27 seconds. 3 digital spot image submitted for interpretation demonstrates posterior needle tips projecting over expected left C2-C4 nerve roots. Correlate with intraoperative findings/report.
--- NOTE | 2024-08-16 13:12 | XRAY ---
27 seconds of fluoroscopy was used in surgery for a left C2-C4 RFA.
== END 2024-08-16 08:47 | disposition home or self-care (01) ==
LOC: SDC-PAIN 07:01
PROVIDERS: ATTEND Psychiatry & Neurology Pain Medicine
DX: M47.812 Spondylosis without myelopathy or radiculopathy, cervical region (principal); R73.03 Prediabetes
CPT/HCPCS: 64633; 64634; 72040; 77002; 82947; J1100; J2704

== ENCOUNTER 2024-09-26 09:46 | Day surgery (SDC) | payer OTHER ==
[2024-09-26] MEDS ORDERED: BUPIVACAINE 0.5% VIAL IJ ONE (09:47)
[2024-09-26] MEDS ORDERED: dexAMETHasone sodium phosphate IJ ONE (09:47)
[2024-09-26] MEDS ORDERED: LIDOCAINE HCL 1% AMPUL 5 ML IJ ONE (09:47)
[2024-09-26] MEDS ORDERED: Lactated Ringers 500 ML IV ONE (11:49)
[2024-09-26] MEDS ORDERED: propofoL IV ONE ×2 (11:51→12:09)
--- NOTE | 2024-09-26 12:42 | XRAY ---
Indication: Right C2-C4 RFA. Intraoperative fluoroscopy provided for 22 seconds. 3 digital spot image submitted for interpretation demonstrates posterior needle tips project over expected right C2-C4 nerve roots. Correlate with intraoperative findings/report.
--- NOTE | 2024-09-26 13:56 | XRAY ---
22 seconds of fluoroscopy was used in surgery for a right C2-C4 RFA.
== END 2024-09-26 12:36 | disposition home or self-care (01) ==
LOC: SDC-PAIN 09:46
PROVIDERS: ATTEND Psychiatry & Neurology Pain Medicine
DX: M47.812 Spondylosis without myelopathy or radiculopathy, cervical region (principal); R73.03 Prediabetes
CPT/HCPCS: 64633; 64634; 72040; 82947; J1100; J2704